=== PATIENT | female | born 1930 | race Caucasian/White ===

== ENCOUNTER 2018-07-10 19:49 | Emergency (ER) | payer MEDICARE ==
[2018-07-10 20:20] VITALS: BP 128/60
--- NOTE | 2018-07-10 20:56 | UC ---
Respiratory Complaint HPI - HPI Summary HPI Summary: Pt states she has had a cold for the past 2 weeks and today the cough became worse and also has a sore throat. has been taking mucinex, started being very "wheezy" the past 2 days, now has sore throat and cough is productive - History of Current Complaint Chief Complaint: UCGeneralIllness Stated Complaint: COUGH Time Seen by Provider: 07/10/18 20:41 Hx Obtained From: Patient ?: No Onset/Duration: Gradual Onset, Lasting Weeks Timing: Constant Severity Initially: Moderate Severity Currently: Moderate Pain Intensity: 7 Character: Cough: Productive Aggravating Factors: Exertion, Deep Breaths Alleviating Factors: Nothing Associated Signs And Symptoms: Positive: Dyspnea, Wheezing, URI, Sinus Discomfort - Allergies/Home Medications Allergies/Adverse Reactions: Allergies Allergy/AdvReac Type Severity Reaction Status Date / Time No Known Allergies Allergy Verified 04/20/13 17:06 Home Medications: Home Medications Apixaban [Eliquis] 5 mg PO BID 07/10/18 [History Confirmed 07/10/18] Cholecalciferol (Vitamin D3) [Vitamin D3] 2,000 unit PO DAILY 07/10/18 [History Confirmed 07/10/18] Insulin Detemir (NF) [Levemir (NF)] 40 unit SUBCUT DAILY 07/10/18 [History Confirmed 07/10/18] Multivitamin [Multiple Vitamins] 1 tab PO DAILY 07/10/18 [History Confirmed ] Rosuvastatin (NF) [Crestor (NF)] 5 mg PO 1700 07/10/18 [History Confirmed ] glipiZIDE [Glipizide] 10 mg PO DAILY 07/10/18 [History Confirmed 07/10/18] PMH/Surg Hx/FS Hx/Imm Hx Previously Healthy: Yes - Surgical History Surgical History: Yes Surgery Procedure, Year, and Place: tonsils, appy, gallbladder, knee x2 - Family History Known Family History: Positive: Respiratory Disease - Social History Alcohol Use: None Substance Use Type: None Smoking Status (MU): Never Smoked Tobacco Review of Systems All Other Systems Reviewed And Are Negative: Yes Constitutional: Positive: Fatigue ENT: Positive: Sore Throat, Nasal Discharge, Sinus Pain/Tenderness Respiratory: Positive: Shortness Of Breath, Cough Is Patient Immunocompromised?: No Physical Exam Triage Information Reviewed: Yes Appearance: Ill-Appearing, Pain Distress, Obese Vital Signs: Initial Vital Signs Temp 98.9 F 07/10/18 20:13 Pulse 94 07/10/18 20:13 Resp 16 07/10/18 20:13 BP 128/60 07/10/18 20:13 Pulse Ox 95 07/10/18 20:13 Vital Signs Reviewed: Yes ENT: Positive: Pharyngeal erythema - wiht PND, Nasal congestion Neck exam: Normal Respiratory: Positive: Chest non-tender, No respiratory distress, No accessory muscle use, Wheezing, Inspiration Cardiovascular Exam: Normal Cardiovascular: Positive: RRR, Pulses Normal, Murmur:Sys:Grade _?_/ - aortic stenosis Abdominal Exam: Normal Bowel Sounds: Positive: Present Musculoskeletal Exam: Normal Neurological Exam: Normal Psychological Exam: Normal Skin Exam: Normal Respiratory Course/Dx - Course Course Of Treatment: hx obtained, exam performed ,meds reviewed, chest xray obtained, wet read is negative. neb treatment given and prescripions for wheezing and cough given. - Differential Dx/Diagnosis Differential Diagnosis/HQI/PQRI: Asthma, Bronchitis, Laryngitis, Lower Resp Infection, Sinusitis Provider Diagnosis: Wheezing, Cough Discharge - Sign-Out/Discharge Documenting (check all that apply): Patient Departure All imaging exams completed and their final reports reviewed: No - Discharge Plan Condition: Stable Disposition: HOME Prescriptions: Benzonatate CAP* [Tessalon 100 MG CAP*] 100 mg PO TID PRN #21 cap PRN Reason: Cough predniSONE [Prednisone 20 MG TAB] 20 mg PO DAILY #7 tablet Patient Education Materials: Wheezing (ED) Referrals: Diana Franklin MD [Primary Care Provider] - Additional Instructions: 1. take the medication as prescribed. 2. Increas fluid intake 3. Salt water gargles for the throat 4. Get plenty of rest. 5. FOllow up if symtpoms worsen - Billing Disposition and Condition Condition: STABLE Disposition: Home
[2018-07-10] MEDS ORDERED: Albuterol/Ipratropium NEB.SOL* Albuterol 2.5 MG/Ipratropium 0.5 MG 3 ML INH ONE (21:12)
[2018-07-10] MEDS ORDERED: Benzonatate CAP* 100 MG PO ONE (21:36)
--- NOTE | 2018-07-11 08:40 | UC ---
- EKG/XRAY/CT Xray Comments: Wet read:NAD, official read minimal atelectasis left base- no change rx Course/Dx - Diagnoses Provider Diagnoses: Wheezing, Cough Discharge - Sign-Out/Discharge Documenting (check all that apply): Post-Discharge Follow Up All imaging exams completed and their final reports reviewed: Yes - Discharge Plan Condition: Stable Disposition: HOME Prescriptions: Benzonatate CAP* [Tessalon 100 MG CAP*] 100 mg PO TID PRN #21 cap PRN Reason: Cough predniSONE [Prednisone 20 MG TAB] 20 mg PO DAILY #7 tablet Patient Education Materials: Wheezing (ED) Referrals: Diana Franklin MD [Primary Care Provider] - Additional Instructions: 1. take the medication as prescribed. 2. Increas fluid intake 3. Salt water gargles for the throat 4. Get plenty of rest. 5. FOllow up if symtpoms worsen - Billing Disposition and Condition Condition: STABLE Disposition: Home
== END 2018-07-10 21:43 | disposition home or self-care (01) ==
LOC: UCCORT 19:49
DX: R06.2 Wheezing (principal); R05 Cough; J98.11 Atelectasis; Z79.02 Long term (current) use of antithrombotics/antiplatelets; Z79.4 Long term (current) use of insulin; Z79.899 Other long term (current) drug therapy
CPT/HCPCS: 71046; 99202; A9270-GY; G0463